=== PATIENT | female | born 1975 | race Caucasian/White ===

== ENCOUNTER 2020-09-30 11:45 | Outpatient (CLI) | payer BC, SELFPAY ==
--- NOTE | ~2020-09-30 | XR_ITS ---
XR knee LT 3V 09/30/2020 12:11 INDICATION: Left knee pain after fall PROCEDURE: 3 views left knee COMPARISON: No prior studies for comparison. FINDINGS: Fracture, dislocation or subluxation is not identified. No definite joint effusion. The sof t tissues appear within normal limits. No foreign bodies are identified. IMPRESSION: 1: NO ACUTE BONE OR JOINT ABNORMALITY IDENTIFIED. Reviewed, dictated and finalized at location A.
--- NOTE | ~2020-09-30 | XR_ITS ---
EXAMINATION: XR foot LT min 3V DATE: 09/30/2020 12:10 INDICATION: Pain over the dorsum of the left foot post fall 2 months prior TECHNIQUE: Dorsoplantar, two oblique and lateral views of the left foot were obtained. COMPARISON: None. FINDINGS: Bone alignment is normal. No fracture. Mild osteoarthritis at the third tarsal metatarsal and first m etatarsophalangeal joints. Soft tissues are unremarkable. IMPRESSION: 1. Mild osteoarthritis at the first metatarsophalangeal and third tarsal metatarsal joints. Reviewed, dictated and finalized at location A. IMPRESSION: 1. Mild osteoarthritis at the first metatarsophalangeal and third tarsal metata rsal joints.
== END 2020-09-30 11:46 | disposition home or self-care (01) ==
LOC: ANHIMG 11:48
PROVIDERS: PCP Physician Assistant; Visit Provider Physician Assistant
DX: M79.672 Pain in left foot (principal); M25.562 Pain in left knee; M19.072 Primary osteoarthritis, left ankle and foot
CPT/HCPCS: 73562; 73630